=== PATIENT | female | born 1935 | race Caucasian/White ===

== ENCOUNTER → 2021-03-09 | Outpatient (CLI) | payer MEDICARE ==
[~2021-03-09] MED LIST: CALCIUM 600/VIT1 CAP PO; CLARITIN 1010 MG/TAB PO; GLUCOPHAGE XR500 M1; PHENTERMINE15 MG; SINGULAIR 110 MG/TAB PO; TENORMIN 5050 MG/TAB PO; TOFRANIL 25MG T25 MG PO; VITAMIN D1000 IU PO; ZESTRIL 10MG10 MG PO; [UNRECOGNIZED DRUG - OTHER] PO
== END ==
LOC: MC.RAD 11:30
DX: Z12.31 Encounter for screening mammogram for malignant neoplasm of breast (principal)

== ENCOUNTER 2021-06-23 14:43 | Emergency (ER) | payer MEDICARE, OTHER ==
[~2021-06-23] VITALS: Ht 154.9 cm; Wt 63.6 kg
[~2021-06-23 14:43] MED LIST changes: -ZESTRIL 10MG10 MG PO
[2021-06-23 14:45] VITALS: TEMP 98
[2021-06-23 15:27] LABS: BASO # 0.1 (0.0-0.2); BASO % 0.6 % (0.0-2.0); EOS # 0.1 (0.0-0.7); EOS % 1.1 % (0-4.0); GRAN # 6.2 (1.4-6.5); GRAN % 62.4 % (42.2-75.2); HEMATOCRIT 50.6 % (37.0-47.0); HEMOGLOBIN 16.2 g/dl (12.5-16.0); LYMPH # 2.7 (1.2-3.4); LYMPH % 27.8 % (20.0-51.0); MEAN CELL VOLUME 96 fl (80.0-100.0); MEAN CORPUSCULAR HEMOGLOBIN 31 pg (27.0-31.0); MEAN CORPUSCULAR HGB CONC 32 g/dl (33.0-37.0); MEAN PLATELET VOLUME 8.3 fl (7.4-10.4); MONO # 0.8 (0.1-0.6); MONO % 7.7 % (1.7-9.3); PLATELET COUNT 328 K/mm3 (130-400); REDCELL DISTRIBUTION WIDTH-CV 13.4 % (11.5-14.5)
[2021-06-23 15:38] LABS: ALANINE AMINOTRANSFERASE 23 U/L (4-34); ALBUMIN 4.6 gm/dL (3.5-5.0); ALKALINE PHOSPHATASE 80 U/L (50-136); ANION GAP 11 mmol/L (7-16); AST,SGOT 42 U/L (15-37); BILIRUBIN,TOTAL 0.7 mg/dL (0.0-1.0); BLOOD UREA NITROGEN 13 mg/dL (7-17); CALCIUM 9.3 mg/dL (8.4-10.2); CARBON DIOXIDE 27 mmol/L (22-30); CHLORIDE 96 mmol/L (98-107); CREATININE, serum 0.64 (0.52-1.25); GLUCOSE 117 mg/dL (74-106); POTASSIUM 4.3 mmol/L (3.4-5.0); SODIUM 134 mmol/L (137-145)
[2021-06-23 15:54] LABS: TROPONIN-I < 0.012 ng/mL (0.000-0.035)
[2021-06-23] MEDS ORDERED: ZESTRIL 10MG10 MG PO (17:07)
[2021-06-23 17:13] VITALS: BP 140/88; PULSE 81
== END 2021-06-23 17:18 | disposition home or self-care (01) ==
LOC: COL.ER 14:43
PROVIDERS: Nurse Practitioner Primary Care
DX: R07.89 Other chest pain (principal); I10 Essential (primary) hypertension; Z79.899 Other long term (current) drug therapy

== ENCOUNTER → 2022-02-12 | Outpatient (CLI) | payer MEDICARE, OTHER ==
[~2022-02-12] MED LIST changes: +ZESTRIL 10MG10 MG PO
== END ==
LOC: COL.RAD 08:45
DX: M47.816 Spondylosis without myelopathy or radiculopathy, lumbar region (principal); M48.07 Spinal stenosis, lumbosacral region; M48.062 Spinal stenosis, lumbar region with neurogenic claudication

== ENCOUNTER → 2022-02-24 | Outpatient (CLI) | payer MEDICARE, OTHER ==
[~2022-02-24] VITALS: Ht 152.4 cm; Wt 65.0 kg
[~2022-02-24] MED LIST changes: +EPA FISH OIL1 SGL PO; +GEMTESA75 MG PO; +GLUCOSAMINE & C1 CA2 PO
[2022-02-24 07:15] VITALS: BP 179/92; PULSE 65; TEMP 97.8
[2022-02-24 08:09] VITALS: BP 175/81; PULSE 61
== END ==
LOC: COL.RAD 02-23 07:00
DX: M48.061 Spinal stenosis, lumbar region without neurogenic claudication (principal)
CPT/HCPCS: J3301

== ENCOUNTER → 2022-04-12 | Outpatient (CLI) | payer MEDICARE, OTHER ==
[~2022-04-12] VITALS: Ht 152.4 cm; Wt 64.6 kg
[~2022-04-12] MED LIST changes: +[UNRECOGNIZED DRUG - OTHER] PO
[2022-04-12 12:14] VITALS: BP 161/82; PULSE 70; TEMP 97.7
[2022-04-12 13:25] VITALS: BP 160/84; PULSE 73
== END ==
LOC: COL.RAD 04-07 11:45
DX: M48.061 Spinal stenosis, lumbar region without neurogenic claudication (principal)
CPT/HCPCS: J3301